=== PATIENT | female | born 1955 | race Caucasian/White ===

== ENCOUNTER → 2017-02-06 | Outpatient (CLI) | payer BC | END | disposition home or self-care (01) | DX: Z12.31 Encounter for screening mammogram for malignant neoplasm of breast (principal) ==

== ENCOUNTER → 2017-02-17 | Outpatient (CLI) | payer BC | END | disposition home or self-care (01) | LOC: PTH.S 14:30 | DX: N17.9 Acute kidney failure, unspecified (principal) ==

== ENCOUNTER 2017-02-20 10:09 | Day surgery (SDC) | payer BC ==
[~2017-02-20] VITALS: Ht 162.6 cm; Wt 49.8 kg
== END 2017-02-20 13:40 | disposition home or self-care (01) ==
LOC: RAD.S 10:09
PROC: 0TB13ZX Excision of Left Kidney, Percutaneous Approach, Diagnostic (ICD-10-PCS; principal; 2017-02-20)
DX: N26.9 Renal sclerosis, unspecified (principal); N17.9 Acute kidney failure, unspecified

== ENCOUNTER → 2017-02-28 | Outpatient (CLI) | payer BC | END | disposition home or self-care (01) | LOC: PTH.S 07:34 → RAD.S 08:30 | DX: R31.0 Gross hematuria (principal); R31.29 Other microscopic hematuria; R93.422 Abnormal radiologic findings on diagnostic imaging of left kidney ==

== ENCOUNTER → 2017-03-08 | Outpatient (CLI) | payer BC | END | disposition home or self-care (01) | LOC: PTH.S 09:36 | DX: N18.3 Chronic kidney disease, stage 3 (moderate) (principal) ==